=== PATIENT | female | born 1965 | race Caucasian/White ===

== ENCOUNTER 2019-05-05 19:24 | Observation (INO) ==
[2019-05-05] MEDS ORDERED: D5 1/2 NS 1,000 ML IV ONE (19:54)
[2019-05-05 20:24] LABS: URINE SOURCE CLEAN CATCH
[2019-05-05 20:27] LABS: BASO# 0.02 X1000 (0.0-0.2); BASO% 0.2 % (0.0-0.8); EOS# 0.04 X1000 (0.0-0.7); EOS% 0.4 % (0.0-10.0); HEMATOCRIT 35.5 % (37.0-47.0); HEMOGLOBIN 11.5 g/dL (12.0-16.0); IMM GRAN# 0.04 X1000 (0.0-0.04); IMM GRAN% 0.4 % (0.0-0.5); LYMPH% 17.7 % (20.5-51.1); MCH 28.6 PG (27-31); MCHC 32.4 g/dL (33-37); MCV 88.3 FL (81-99); MONO# 0.65 X1000 (0.11-0.59); MONO% 7.2 % (1.7-9.3); MPV 9.6 FL (7.4-10.4); NEUT% 74.1 % (42.2-75.2); PLT 276 X1000 (130-400); RBC 4.02 XMIL (4.2-5.4); RDW 14.2 % (11.5-14.5); WBC 9.05 X1000 (4.8-10.8)
[2019-05-05 20:29] LABS: BILIRUBIN URINE NEGATIVE (NEGATIVE); BLOOD URINE NEGATIVE (NEGATIVE); COLOR STRAW; GLUCOSE URINE NEGATIVE (NEGATIVE); KETONE URINE NEGATIVE (NEGATIVE); LEUKOCYTES URINE NEGATIVE (NEGATIVE); NITRITE URINE NEGATIVE (NEGATIVE); PH URINE 6.5; PROTEIN URINE NEGATIVE (NEGATIVE); SP GRAVITY URINE 1.008; TURBIDITY URINE CLEAR (CLEAR); UROBILINOGEN URINE NORMAL (NORMAL)
[2019-05-05 20:31] LABS: UR EPITHELIAL CELLS <10 /HPF (<10); URINE BACTERIA NEGATIVE /HPF; URINE RBC <10 /HPF (<10); URINE WBC <10 /HPF (<10)
[2019-05-05 20:54] LABS: AGAP 12; ALB/GLOB RATIO 1.3; ALKALINE PHOSPHATASE 58 U/L (32-104); AMYLASE 41 U/L (20-200); BUN 9 mg/dL (8-22); CALCIUM 8.5 mg/dL (8.8-10.2); CHLORIDE 100 mmol/L (98-107); COSMO 275; CREATININE 0.7 mg/dL (0.5-0.9); ESTIMATED GFR > 60; GLUCOSE 107 mg/dL (70-104); GOT 14 U/L (10-30); GPT 10 U/L (10-36); LIPASE 37 U/L (13-60); POTASSIUM 3.9 mmol/L (3.5-5.1); SODIUM 138 mmol/L (136-145); TCO2 26 mmol/L (25-35); TOTAL BILIRUBIN 0.21 mg/dL (0.20-1.00); TOTAL PROTEIN 7.1 g/dL (6.3-8.3)
--- NOTE | 2019-05-05 21:40 | Diag Imaging Result Doc PS360 ---
EXAM: CT ABD/PELVIS W/PO AND IV CON 05/05/2019 HISTORY: abd pain TECHNIQUE: This exam was performed using automated exposure control, adjustment of mA or kV according to patient size, and/or use of iterative reconstruction technique. COMMENT: There is patchy groundglass opacity in the right lower lobe posterior medially. There are linear opacities in the right middle lobe and left lower lobe which may indicate atelectasis or fibrosis. There are no previous studies available for comparison. The aorta is not distended. The mesenteric and renal arteries are patent. The gallbladder is not distended. There are no apparent stones. The spleen and adrenal glands are not enlarged. There is a cyst in the upper pole of the left kidney. The renal pelves are prominent particularly the left. The pancreas is unremarkable. There is some thickening of the omentum inferiorly over the pelvis. The appendix is normal in appearance. There is a heterogeneous mass extending into the lower abdomen from the pelvis measuring 14.6 x 10.2 x 14.9 cm. This is abutting but appears to be separate from the uterus. The endometrial stripe is thickened particularly in the fundus of the uterus. Neither ovary is discretely identified. The left gonadal vein is somewhat enlarged and this mass may arise from the left ovary. Pelvis: The urinary bladder is slightly distended. There is free fluid in the cul-de-sac. There is also some free fluid in the right iliac fossa. The regional skeleton is intact. IMPRESSION: Large pelvic mass, either arising from the left ovary or possibly from the uterine fundus. Ascites. The findings were discussed with Dr. Cobos at 2137. Electronically signed by Alex Fish 05/05/2019 9:37 PM
[2019-05-05] MEDS ORDERED: TYLENOL PO PRN (22:56)
[2019-05-05] MEDS ORDERED: ROCEPHIN 2 GM in NS 50 ML IV ONE (23:17)
[2019-05-06 07:34] LABS: BASO# 0.01 X1000 (0.0-0.2); BASO% 0.1 % (0.0-0.8); EOS# 0.02 X1000 (0.0-0.7); EOS% 0.2 % (0.0-10.0); HEMATOCRIT 33.8 % (37.0-47.0); HEMOGLOBIN 10.7 g/dL (12.0-16.0); IMM GRAN# 0.02 X1000 (0.0-0.04); IMM GRAN% 0.2 % (0.0-0.5); LYMPH# 1.18 X1000 (1.2-3.4); LYMPH% 13.8 % (20.5-51.1); MCH 28.4 PG (27-31); MCHC 31.7 g/dL (33-37); MCV 89.7 FL (81-99); MONO# 0.58 X1000 (0.11-0.59); MONO% 6.8 % (1.7-9.3); MPV 9.6 FL (7.4-10.4); NEUT# 6.75 X1000 (1.4-6.5); NEUT% 78.9 % (42.2-75.2); PLT 237 X1000 (130-400); RBC 3.77 XMIL (4.2-5.4); RDW 14.4 % (11.5-14.5); WBC 8.56 X1000 (4.8-10.8)
[2019-05-06 07:37] LABS: INR 1.1; PROTIME 14.3 Seconds (11.0-16.0)
[2019-05-06 07:38] LABS: PTT 34.3 Seconds (22.3-41.8)
--- NOTE | 2019-05-06 08:12 | HISTORY AND PHYSICAL ---
CHIEF COMPLAINT: Abdominal discomfort and fever of 100.7. HISTORY OF PRESENT ILLNESS: Ms. Hay is a 53-year-old lady with past medical history of uterine polyps who comes in with chief complaint of lower abdominal pain, discomfort, and fever of 100.7 on the day of presentation. The patient was in her usual state of health until yesterday morning time. In February 2019, patient underwent hysteroscopic polypectomy of her cervix and endometrial ablation for menorrhagia. Yesterday, on 05/04/2019, she underwent routine age-appropriate colon cancer screening. Right before the colonoscopy procedure, she did have some discomfort and discomfort in lower abdominal region which she thought could be related to gaseous distention. Her colonoscopy was uneventful and she went home. However, through the morning she started experiencing increased pain in the hypogastric region. She also had fever of 100.7, so she decided to come to the hospital. Dr. Cobos, who was her broadcast operations manager who performed colonoscopy, also came to the emergency room to evaluate her. A CT scan of the abdomen and pelvis was performed which suggested large uterine or ovarian mass, so the hospitalist team was consulted for further management. At the time of my evaluation, Ms. Hay denies chest pain, shortness of breath, cough, nausea, or vomiting. She has complaints of abdominal pain, but she thinks she may not need any pain medications. She has not had any fever episodes since presentation. REVIEW OF SYSTEMS: Positive for abdominal pain. Negative for nausea and vomiting. Negative for chest pain, shortness of breath. PAST MEDICAL HISTORY: History of uterine polyps, history of menorrhagia. PAST SURGICAL HISTORY: Cervical polypectomy. CURRENT MEDICATIONS.: None. ALLERGIES: None SOCIAL HISTORY: Denies any smoking, alcohol or recreational substance use. FAMILY HISTORY: Not significant. PHYSICAL EXAMINATION: VITAL SIGNS: Temperature of 99.4 degrees, pulse 114, respiratory rate 18, blood pressure 140/77, saturating 97% room air. GENERAL: Ms. Hay does not appear in acute distress. HEENT: Oral cavity is moist. LUNGS: Air entry bilaterally equal no wheeze, rhonchi, crackles. CARDIOVASCULAR: S1, S2 normal. No murmur or gallop. ABDOMEN: Soft. I could palpate a formed mass in the hypogastric region which is tender. Hypoactive bowel sounds. EXTREMITIES: Mild lower extremity edema. NEUROLOGIC: She is alert oriented x3. LABS: Suggestive of WBC of 9000, hemoglobin 11.5, platelet 276,000. Urinalysis was unremarkable. Microbiology; no data. IMAGING: Abdomen and pelvis CT had detected a large pelvic mass, either arising from the left ovary or possibly from the uterine fundus. ASSESSMENT AND PLAN: 1. Pelvic mass arising from the left ovary or possibly from the uterine fundus. I will place a consult for OYSTER PREPARER 2. Fever of 100.7 at home and tachycardia on presentation. On review of the CAT scan, she does not appear to have any abscess. I will give her one time dose of antibiotics. Follow up CBC tomorrow. Based on that, I will consider further antibiotic course as necessary. Appreciate OYSTER PREPARER recommendations. DISPOSITION: I will admit the patient for observation as we await further OYSTER PREPARER recommendations. Plan of care discussed with the patient. All of her questions have been answered. cc: Singh Tolentino MD
[2019-05-06 08:27] LABS: AGAP 13; BUN 5 mg/dL (8-22); CALCIUM 8.2 mg/dL (8.8-10.2); CHLORIDE 100 mmol/L (98-107); COSMO 270; CREATININE 0.6 mg/dL (0.5-0.9); ESTIMATED GFR > 60; GLUCOSE 113 mg/dL (70-104); POTASSIUM 3.9 mmol/L (3.5-5.1); SODIUM 136 mmol/L (136-145); TCO2 23 mmol/L (25-35)
--- NOTE | 2019-05-06 08:49 | CONSULTATION ---
DATE OF CONSULTATION: 05/05/2019 REASON FOR CONSULTATION: Evaluation of this patient with abdominal pain and fever. HISTORY OF PRESENT ILLNESS: Ms. Hay is a 53-year-old lady who came to me as an outpatient to get a screening colonoscopy done. She had never had any colonoscopy in the past. She has undergone a colonoscopy yesterday morning. Prior to the colonoscopy, the patient complained to me that she has fullness in the lower abdomen. It was more swollen than what it used to be. I examined her at that time. I was unable to feel a mass. She had an uneventful colonoscopy yesterday. The colon was normal with no polyps or diverticula. The patient recovered fully and was alert. When I talked to her, she did not have any pain after the colonoscopy. Her vital signs all remained stable. She went home and had a normal diet. She ate good yesterday and slept well. This morning, she woke up and ate breakfast. She had one bowel movement After the colonoscopy. However, midmorning she started having some lower abdominal pain. She described it as gas pains. She was unable to pass any gas. Therefore, she called me around 7 o'clock. I asked her to come to the emergency room. I evaluated her in the emergency room. She had a fever of 99.9, pulse rate was 114, blood pressure was 140/77. She had tenderness in the lower abdomen in both left lower quadrant, right lower quadrant and suprapubic region. We observed her in the emergency room. Pending blood work and CT scan. PAST MEDICAL HISTORY: The patient had a uterine ablation done by Dr. Fuller on 03/13/2019. The patient said that some polyps were removed and she had an uneventful recovery. Prior to the ablation, on 02/15/2019 the patient had a vaginal ultrasound and also a pelvic ultrasound. The impression was suboptimal exam with a heterogeneous uterus with questionable degenerating fibroids or polyps. A CT scan was recommended. The uterus was measuring 10.4 x 7.7 x 5.5. The patient denied any other medical problems such as hypertension, diabetes mellitus or any GI disease. She has a history of migraine. SOCIAL HISTORY: She has no children. She does not abuse alcohol at this point. She was a former smoker. She drinks alcohol occasionally. She is currently . 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 FAMILY HISTORY: The patient's father had myelodysplastic syndrome. No history of colon cancer in the family. There is a history of hypertension in the family. There is no history of diabetes or any GI issues in the family. ALLERGIES: No known drug allergies. PHYSICAL EXAMINATION: In the emergency room, mentioned above. LABORATORY DATA: The WBC count was 9.05, hemoglobin 11.5, hematocrit 35.5. The platelet count is 276. Sodium is 138, potassium is 3.9, chloride is 100, carbon dioxide is 26, anion gap 12, BUN is 9, creatinine 0.7. The glucose is 107. Calcium 8.5, total bilirubin is 2.1, AST is 14, ALT is 10. Alkaline phosphatase is 58. Total protein is 7.1. Albumin is 4, globulin is 3.1, amylase 41, lipase is 37. Urinalysis negative for any infection. CT scan of the abdomen and pelvis done with and without contrast. This showed patchy ground-glass opacity, right lower posterior medially. There are linear opacities in the right middle lobe and lower lobe which may indicate atelectasis or fibrosis. There are no previous studies available for comparison. The aorta was normal. The mesenteric and renal arteries were patent. The gallbladder was not distended. There were no apparent stones. The spleen and adrenal glands were not enlarged. There is a cyst in the upper pole of the left kidney. The renal pelvis is prominent, particularly the left. The pancreas is unremarkable. There is some thickening of the omentum inferiorly over the pelvis. The appendix is normal in appearance. There is a heterogeneous mass extending into the lower abdomen from the pelvis measuring 14.6 x 10.2 x 14.9. This is abutting but appears to be separate from the uterus. The endometrial stripe is thickened, particularly in the fundus of the uterus. Neither ovary was discretely identified. The left gonadal vein is somewhat enlarged and this mass may arise from the left ovary. The urinary bladder is distended in the pelvis. There is some fluid in the cul de sac. The colon and the bowels are all normal. This mass does not seem to be in any way related to the colon. IMPRESSION: A large mass in relation to the left ovary. Differential diagnosis might include large hematoma or an ovarian mass. The patient seems to have some acute changes in this mass, which might have given rise to her fever and pain, which appeared from this morning onwards. Perhaps necrosis or infected hematoma formation could explain the change in constitutional symptoms. The patient is able to eat and drink. I discussed the case with the hospitalist Dr. Tolentino and also the ER physician and the patient. We were all in agreement to keep the patient in the hospital for observation and ST[facility] AND PROS[facility] MIXER can evaluate the patient. I reassured her and we will arrange for admission by Dr. Tolentino under the hospital service. cc: MD Jonny MTDD
--- NOTE | 2019-05-06 10:44 | Diag Imaging Result Doc PS360 ---
EXAM: US PELVIC NON-OB COMPLETE HISTORY: Pelvic mass/ Ovarian mass TECHNIQUE: Pelvic ultrasound COMPARISON: CT from 05/05/2019 FINDINGS: Transvaginal pelvic ultrasound. There is a large complex pelvic mass measuring approximately 12 x 14 x 15 cm. This is predominantly solid but there are cystic components within it. The left ovary is adjacent to the mass and contains a 1.5 cm cyst. The uterus lies adjacent to the mass as well. Uterus measures approximately 8.1 x 6.1 x 5.3 cm. There is endometrial thickening with two stark measuring over 2 cm. A distinct right ovary is not identified. IMPRESSION: Large pelvic mass likely arising from one of the ovaries or the uterus. Electronically signed by Dante Pagan 05/06/2019 10:41 AM
[2019-05-06 13:21] VITALS: BP 127/71
--- NOTE | 2019-05-06 22:13 | HISTORY AND PHYSICAL ---
CHIEF COMPLAINT: Abdominal pain and bloating. HISTORY OF PRESENT ILLNESS: The patient is a 53-year-old nulliparous woman who presented to the emergency room with a history of 1 to 2 days of abdominal pain and bloating. She had recently several days ago had a colonoscopy which was unremarkable and was given a clean bill of health and 10 year follow-up. Two months prior to admission, she underwent endometrial ablation for recurrent uterine polyps that was unremarkable as well. She has not had these symptoms before. She has noticed over the past several weeks increasing bloating and a change in her abdominal girth based on her clothes fitting. She has had a consult by Dr. Cobos, who had performed the colonoscopy, and reports that the symptomatology, the CT and ultrasound findings are unrelated to the uneventful colonoscopy of several days ago. The CT scan indicates that she has a large pelvic mass extending from the left ovary or uterus measuring 15 x 10 x 15. The heterogeneous mass is separate from the large intestine. There is ascites and omental thickening noted. An ultrasound performed indicates a an 15 x 14 x 12 complex pelvic mass extending from the left ovary or adnexa. The mass is both solid and cystic. Endometrial thickening is also noticed. PREVIOUS MEDICAL HISTORY: Negative. PREVIOUS SURGICAL HISTORY: Endometrial ablation as above and polypectomy approximately 1 year ago. OBSTETRICAL HISTORY: Negative. GYNECOLOGIC HISTORY: Pertinent for normal Pap smears. perimenopausal bleeding, No hf/ns ALLERGIES TO MEDICINES.: None. CURRENT MEDICATIONS: None. FAMILY HISTORY: Negative for hypertension, diabetes. Parent had myeloplastic disease. REVIEW OF SYSTEMS: Negative for chest pain, shortness of breath, headaches, cough, runny nose, fever, sore throat. PHYSICAL EXAMINATION: GENERAL: This is a well-developed, well-nourished woman in no acute distress. HEENT: Grossly normal. LUNGS: Unlabored breathing. HEART: Regular rate and rhythm. EXAM OF THE EXTREMITIES: Without clubbing, cyanosis. There is a small amount of edema in the lower extremities. ABDOMEN: Slightly protuberant and tender throughout. On mild palpation, the upper abdomen is soft with no masses palpated, and the lower abdomen feels hard and woody throughout. No discrete mobile mass palpated. Pelvic exam is deferred. ASSESSMENT: A 53-year-old perimenopausal woman with a 15-inch pelvic mass extending from the left adnexal complex in nature, associated with ascites and omental thickening. This has to be suspicious for an ovarian primary, given the patient's age and the clinical radiographic picture. Given that there are no gynecological oncologists for consultation at [facility], I have recommended transfer to a tertiary care center for further evaluation by Gynecologic Oncology and most likely surgical extirpation with possible debulking. I had a long discussion with the patient concerning these issues and the reason for transfer, and she agrees to same. Her questions are answered. Her concerns were addressed. [facility]
--- NOTE | 2019-05-07 16:53 | DISCHARGE SUMMARY ---
ADMISSION DATE: 05/05/2019 DISCHARGE DATE: 05/06/2019 DISCHARGE DIAGNOSES: 1. Pelvic mass arising likely from the left ovary or possibly from the uterine fundus. 2. Unspecified fever at presentation, resolved, negative white blood cell count. PROCEDURES PERFORMED: 1. Abdomen and pelvis CT scan dated 05/05/2019. Impression; large pelvic mass, either arising from the left ovary or possibly from the uterine fundus. Ascites. 2. Pelvic ultrasound dated 05/06/2019. Impression; left pelvic mass likely arising from one of the ovaries or uterus. HOSPITAL COURSE: Ms. Hay is a 53-year-old female with a past medical history of uterine polyps who came in with a chief complaint of lower abdominal discomfort. She had a one- time fever of 100.7. In February 2019, she under underwent hysteroscopic polypectomy of her cervix and endometrial ablation for menorrhagia. On 05/04/2019, she underwent routine age- appropriate colon cancer screening. Right before the colonoscopy procedure, she did have some discomfort in the lower abdominal region which she thought could be related to gaseous distention. Her colonoscopy apparently was uneventful, and she went home. However, through the morning she stated she started experiencing increasing lower abdomen discomfort and also some elevation of the temperature/fever at 100.7. She decided to come to the hospital. Dr. oCbos, which is her a trouble locater, who performed the colonoscopy, came to the emergency department to evaluate her. A CT scan of the abdomen and pelvis was performed and showed a large uterine or ovarian mass. We were consulted for further management. When I evaluated this patient she was without pain. No fever, no chills, no cough, no signs of infection at all. She received 1 dose of antibiotics in the emergency department. She also received acetaminophen and some IV fluids. When I evaluated this patient today again, she was completely asymptomatic, maybe some discomfort to palpation at the level of the lower abdomen. Because she has this mass that we found with a CT scan, REPROGRAPHICS ASSOCIATE was consulted and they ordered a pelvic ultrasound that showed a large pelvic mass, likely arising from one of the ovaries or the uterus. The mass was complex and was measuring around 12 x 14 x 15 cm. Again, this measurement is on the ultrasound. On the CT scan it was around 14.6 x 10.2 x 14.9. After this patient was evaluated by REPROGRAPHICS ASSOCIATE, I discussed the case with this doctor, who has recommended to transfer this patient to [facility] so she can be treated by a lead sewage plant operator/oncologist. I discussed the case with the transfer center and with Dr. Adiel Santiago's nurse practitioner. Since the patient is stable, vital signs and lab work are stable as well, they requested that probably it is going to be better for her to go to the office on , 05/11/2019 at 8 a.m. They also have requested to do lab work, including CA19-9, CA-125, CEA and inhibin B. All these have already been taken and actually the CEA is normal at 1. This has been explained to the patient and the mother at the bedside. They seem to understand and they want to proceed with this plan. This patient has been discharged in stable medical condition. She has no problem tolerating food. She was completely awake, alert. She was oriented x3. No focal neurological deficits. OBJECTIVE: Vital Signs: Temperature 98.8 degrees, pulse 97, respiratory rate 20, blood pressure 127/71, oxygen saturation 97% on room air. HEENT: Head normocephalic. No trauma. PERRLA. Neck: Supple. No JVD. No masses. Central trachea. Chest: Clear to auscultation. No wheezing. No rales. Abdomen: Soft. Some discomfort to palpation at the level of the lower abdomen, and is slightly protuberant but positive bowel sounds. Extremities: No edema, no clubbing, no cyanosis. Neurological: The patient is awake alert. She is oriented x3. No focal deficits. LABORATORY: WBC 8.5, hemoglobin 10.7, hematocrit 33.8, platelet 237,000. Sodium 136, potassium 3.9, chloride 100, bicarbonate 23, BUN 5, creatinine 0.6, glucose 113, calcium 8.2. DISCHARGE MEDICATION: Tramadol 50 mg p.o. every 8 hours x10 pills as needed for pain. The patient has been instructed not to drive if she is going to take the medication. FOLLOWUP: Follow up with Dr. Adiel Santiago next 05/11/2019 at 8 a.m. His office is located at the [facility] at [facility], sixth floor. The phone number is [phone]. Also, she can call me if any questions or concerns. cc: Lucas Ovalles MD
== END 2019-05-06 15:01 | disposition home or self-care (01) ==
LOC: ED 19:24 → INTOOBSV 19:25 → SUATTDRO 19:25 → 4N 19:25
PROVIDERS: ATTEND Internal Medicine